=== PATIENT | male | born 1960 | race Caucasian/White ===

== ENCOUNTER 2019-02-06 08:06 | Emergency (ER) | payer SELFPAY ==
[2019-02-06] MEDS ORDERED: KETOROLAC 30 MG/ML INJ ONE (08:41)
[2019-02-06] MEDS ORDERED: NA CHLORIDE 0.9% 500 ML ONE (08:41)
[2019-02-06] MEDS ORDERED: ONDANSETRON 4 MG/2 ML VIAL ONE (08:41)
[2019-02-06 08:52] LABS: Absolute Lymphocytes (CBC) 0.8 K/uL (0.7-4.9); Basophils % 0.4 % (0-1.3); Hematocrit 36.5 % (39.6-49.0); Lymphocytes % 6.7 % (15.3-44.8); MPV 8.3 fL (7.6-11.3); RBC Red Blood Cell Count 4.47 M/uL (4.33-5.43)
[2019-02-06 09:03] LABS: ALT/SGPT 38 U/L (12-78); AST/SGOT 24 U/L (15-37); Albumin 3.4 g/dL (3.4-5.0); Alkaline Phosphatase 132 U/L (45-117); BUN Blood Urea Nitrogen 23 mg/dL (7-18); Bicarbonate 22 mmol/L (21-32); Bilirubin Direct < 0.1 mg/dL (0-0.2); Bilirubin Total 0.4 mg/dL (0.2-1.0); Glucose Level 164 mg/dL (74-106); Lipase 188 U/L (73-393); Protein, Total 7.6 g/dL (6.4-8.2); Sodium Level 146 mmol/L (136-145)
--- NOTE | 2019-02-06 09:22 | RAD REPORT ---
EXAM DESCRIPTION: CT - Stone Protocol - 02/06/2019 8:59 am CLINICAL HISTORY: Flank pain. right flank COMPARISON: No comparisons TECHNIQUE: Axial images were obtained without oral or IV contrast. Lack of contrast limits solid org an and vascular assessment. The [id number] spans the entirety of the system partially obscuring uppermost abdomen and lung bases. Coronal reformatted images were obtained and reviewed. All CT scans are performed using dose optimization technique as appropriate and may include automated exposure control or mA/KV adjustment according to patient size. FINDINGS: The lower lung nixon are clear. Imaged portions of the liver and spleen show no suspicious findings on non-contrast imaging. The panc reas and adrenal glands are normal. No pathologic lymphadenopathy in the abdomen or pelvis. 3 mm stone is present in the distal right ureter resulting in mild right hydronephrosis. Additional p unctate calculus is seen mid-pole right kidney. Several small calculi are present inferior calyx left kidney largest measuring 4 mm. No bowel obstruction, free air, free fluid or abscess. Normal appendix noted.Small to moderate fat co ntaining left inguinal hernia. Mild lumbar degenerative changes. IMPRESSION: 3 mm stone distal right ureter resulting in mild right hydronephrosis. Additional bilateral nephrolithiasis.
[2019-02-06 10:03] LABS: Blood Morphology Comment NOT SEEN (NOT SEEN); Platelet Estimate ADEQ; Urine White Blood Cell Casts OK
--- NOTE | 2019-02-06 10:23 | ER ---
Nurse's Notes [facility] Name: Raji Cherry Age: 58 yrs Sex: Male : 1960 Arrival Date: 02/06/2019 Time: 08:08 Bed 8 Private MD: Diagnosis: Right Kidney stone - 3 mm Presentation: 02/06 08:15 Presenting complaint: Patient states: right flank pain that started this morning around sv 0300 with n/v. Hx kidney stones. Transition of care: patient was not received from another setting of care. Onset of symptoms was February 06, 2019 at 03:00. Risk Assessment: Do you want to hurt yourself or someone else? Patient reports no desire to harm self or others. Initial Sepsis Screen: Does the patient meet any 2 criteria? No. Patient's initial sepsis screen is negative. Does the patient have a suspected source of infection? No. Patient's initial sepsis screen is negative. Care prior to arrival: None. 08:15 Method Of Arrival: Ambulatory sv 08:19 Acuity: LUCIA 2 sv Triage Assessment: 08:15 General: Appears in no apparent distress. uncomfortable, Behavior is cooperative, sv appropriate for age, restless. Pain: Complains of pain in anterior aspect of right lateral abdomen and posterior aspect of right lateral abdomen Pain currently is 8 out of 10 on a pain scale. Quality of pain is described as sharp, stabbing, Pain began 0300 Is continuous. Neuro: Level of Consciousness is awake, alert, obeys commands, Oriented to person, place, time, situation, Moves all extremities. Full function Gait is steady. Respiratory: Respiratory effort is even, unlabored, Respiratory pattern is regular, symmetrical. GI: Reports nausea, vomiting. Derm: Skin is clammy, Skin is normal. Historical: - Allergies: 08:30 No Known Allergies; sv - PMHx: 08:30 Kidney stones; sv - PSHx: 08:30 left wrist; sv - Immunization history:: Adult Immunizations up to date. - Social history:: Smoking status: Patient/guardian denies using tobacco. - Ebola Screening: : No symptoms or risks identified at this time. Screenin:31 Abuse screen: Denies threats or abuse. Denies injuries from another. Nutritional sv screening: No deficits noted. Tuberculosis screening: No symptoms or risk factors identified. Fall Risk None identified. Assessment: 08:48 Reassessment: Patient appears in no apparent distress at this time. No changes from sv previously documented assessment. Patient and/or family updated on plan of care and expected duration. Pain level reassessed. Patient is alert, oriented x 3, equal unlabored respirations, skin warm/dry/pink. Vital Signs: 08:17 BP 163 / 81; Pulse 89; Resp 22; Temp 98.2; Pulse Ox 98% ; Weight 95.25 kg; Height 5 ft. sv 7 in. (170.18 cm); Pain 8/10; 09:29 BP 135 / 75; Pulse 71; Resp 18; Pulse Ox 100% ; sv 09:30 Pain 0/10; sv 10:17 BP 130 / 73; Pulse 65; Resp 18; Pulse Ox 100% ; sv 08:17 Body Mass Index 32.89 (95.25 kg, 170.18 cm) sv ED Course: 08:08 Patient arrived in ED. am2 08:10 Jose Jara MD is Attending Physician. kdr 08:12 Winifred Augustin RN is Primary Nurse. sv 08:15 Arm band placed on Patient placed in an exam room, on a stretcher. sv 08:15 Patient has correct armband on for positive identification. Bed in low position. Call sv light in reach. Adult w/ patient. Pulse ox on. NIBP on. Door closed. Head of bed elevated. 08:19 Triage completed. sv 08:25 Missed attempt(s): 20 gauge in right antecubital area. Bleeding controlled, band aid sv applied, catheter tip intact. 08:39 Initial lab(s) drawn, by me, sent to lab. Inserted saline lock: 20 gauge in left jb1 antecubital area, using aseptic technique. Blood collected. 08:[address] via wheelchair. sv 09:04 CT Stone Protocol In Process Unspecified. EDMS 09:33 Awaiting radiology results. sv 10:30 No provider procedures requiring assistance completed. IV discontinued, intact, sv bleeding controlled, No redness/swelling at site. Pressure dressing applied. Administered Medications: 08:44 Drug: NS 0.9% 500 ml Route: IV; Rate: bolus; Site: left antecubital; sv 09:30 Follow up: Response: No adverse reaction; IV Status: Completed infusion; IV Intake: sv 500ml 08:44 Drug: Zofran 4 mg Route: IVP; Site: left antecubital; sv 09:30 Follow up: Response: No adverse reaction sv 08:46 Drug: TORadol - Ketorolac 15 mg Route: IVP; Site: left antecubital; sv 09:30 Follow up: Pain 0/10 Adult; Response: No adverse reaction; Marked relief of symptoms; sv Pain is decreased Intake: 09:30 IV: 500ml; Total: 500ml. sv Outcome: 10:19 Discharge ordered by . kdr 10:30 Discharged to home ambulatory, with family. sv 10:30 Condition: stable 10:30 Discharge instructions given to patient, Instructed on discharge instructions, follow up and referral plans. no drinking with medication, no driving heavy equipment, medication usage, increase fluid intake Demonstrated understanding of instructions, follow-up care, medications, Prescriptions given X 4. 10:33 Patient left the ED. sv Signatures: Dispatcher [employer] EDRick Manjarrez Stephanie, RN RN Jose Scott MD MD kdr Moreno, Amanda am2
--- NOTE | 2019-02-06 10:23 | EDPHYS ---
Physician Documentation [facility] Name: Raji Cherry Age: 58 yrs Sex: Male : 1960 Arrival Date: 02/06/2019 Time: 08:08 Bed 8 Private MD: ED Physician Jose Jara HPI: 02/06 08:56 This 58 yrs old Male presents to ER via Ambulatory with complaints of Flank kdr Pain, Nausea. 08:56 The patient complains of pain in the right mid back. Onset: The symptoms/episode kdr began/occurred suddenly, at 03:30, and became worse and became persistent. Modifying factors: The symptoms are alleviated by nothing. the symptoms are aggravated by nothing. Associated signs and symptoms: Pertinent positives: nausea, vomiting, Pertinent negatives: dizziness, dysuria, fever, urinary frequency, headache, hematuria, nausea. Severity of pain: At its worst the pain was moderate just prior to arrival, in the emergency department the pain is unchanged. The patient has experienced similar episodes in the past, multiple times, States that about once every five years. The patient has not recently seen a physician. Historical: - Allergies: 08:30 No Known Allergies; sv - PMHx: 08:30 Kidney stones; sv - PSHx: 08:30 left wrist; sv - Immunization history:: Adult Immunizations up to date. - Social history:: Smoking status: Patient/guardian denies using tobacco. - Ebola Screening: : No symptoms or risks identified at this time. ROS: 08:56 Constitutional: Negative for fever, chills, and weight loss, Eyes: Negative for injury, kdr pain, redness, and discharge, Neck: Negative for injury, pain, and swelling, Cardiovascular: Negative for chest pain, palpitations, and edema, Respiratory: Negative for shortness of breath, cough, wheezing, and pleuritic chest pain, Abdomen/GI: Negative for abdominal pain, nausea, vomiting, diarrhea, and constipation, : Negative for injury, bleeding, discharge, and swelling, MS/Extremity: Negative for injury and deformity, Skin: Negative for injury, rash, and discoloration, Neuro: Negative for headache, weakness, numbness, tingling, and seizure activity. Psych: Negative for depression, anxiety, suicide ideation, homicidal ideation, and hallucinations, Allergy/Immunology: Negative for hives, rash, and allergies, Endocrine: Negative for neck swelling, polydipsia, polyuria, polyphagia, and marked weight changes, Hematologic/Lymphatic: Negative for swollen nodes, abnormal bleeding, and unusual bruising. 08:56 Back: Positive for pain at rest, pain with movement, flank pain, on the right, radiated pain. Exam: 08:56 Constitutional: This is a well developed, well nourished patient who is awake, alert, kdr and in no acute distress. Head/Face: Normocephalic, atraumatic. Eyes: Pupils equal round and reactive to light, extra-ocular motions intact. Lids and lashes normal. Conjunctiva and sclera are non-icteric and not injected. Cornea within normal limits. Periorbital areas with no swelling, redness, or edema. Neck: Trachea midline, no thyromegaly or masses palpated, and no cervical lymphadenopathy. Supple, full range of motion without nuchal rigidity, or vertebral point tenderness. No Meningismus. Chest/axilla: Normal chest wall appearance and motion. Nontender with no deformity. No lesions are appreciated. Cardiovascular: Regular rate and rhythm with a normal S1 and S2. No gallops, murmurs, or rubs. Normal PMI, no JVD. No pulse deficits. Respiratory: Lungs have equal breath sounds bilaterally, clear to auscultation and percussion. No rales, rhonchi or wheezes noted. No increased work of breathing, no retractions or nasal flaring. Abdomen/GI: Soft, non-tender, with normal bowel sounds. No distension or tympany. No guarding or rebound. No evidence of tenderness throughout. Skin: Warm, dry with normal turgor. Normal color with no rashes, no lesions, and no evidence of cellulitis. MS/ Extremity: Pulses equal, no cyanosis. Neurovascular intact. Full, normal range of motion. Neuro: Awake and alert, GCS 15, oriented to person, place, time, and situation. Cranial nerves II-XII grossly intact. Motor strength 5/5 in all extremities. Sensory grossly intact. Cerebellar exam normal. Normal gait. Psych: Awake, alert, with orientation to person, place and time. Behavior, mood, and affect are within normal limits. 08:56 Back: pain, that is mild, ROM is painful, normal spinal alignment noted, CVA tenderness, that is mild, is noted on the right, muscle spasm, is not present. Vital Signs: 08:17 BP 163 / 81; Pulse 89; Resp 22; Temp 98.2; Pulse Ox 98% ; Weight 95.25 kg; Height 5 ft. sv 7 in. (170.18 cm); Pain 8/10; 09:29 BP 135 / 75; Pulse 71; Resp 18; Pulse Ox 100% ; sv 09:30 Pain 0/10; sv 10:17 BP 130 / 73; Pulse 65; Resp 18; Pulse Ox 100% ; sv 08:17 Body Mass Index 32.89 (95.25 kg, 170.18 cm) sv MDM: 10:19 Patient medically screened. kdr 12:34 Data reviewed: vital signs, lab test result(s), radiologic studies. Counseling: I had a kdr detailed discussion with the patient and/or guardian regarding: the historical points, exam findings, and any diagnostic results supporting the discharge/admit diagnosis. 02/06 08:19 Order name: Basic Metabolic Panel; Complete Time: 09:50 sv 02/06 08:19 Order name: CBC with Diff sv 02/06 08:19 Order name: Creatinine for Radiology; Complete Time: 09:50 sv 02/06 08:19 Order name: Hepatic Function; Complete Time: 09:50 sv 02/06 08:19 Order name: Lipase; Complete Time: 09:50 sv 02/06 08:35 Order name: CT Stone Protocol kdr 02/06 10:07 Order name: CBC Smear Scan EDMS 02/06 08:19 Order name: IV Saline Lock; Complete Time: 08:39 sv 02/06 08:19 Order name: Labs collected and sent; Complete Time: 08:39 sv Administered Medications: 08:44 Drug: NS 0.9% 500 ml Route: IV; Rate: bolus; Site: left antecubital; sv 09:30 Follow up: Response: No adverse reaction; IV Status: Completed infusion; IV Intake: sv 500ml 08:44 Drug: Zofran 4 mg Route: IVP; Site: left antecubital; sv 09:30 Follow up: Response: No adverse reaction sv 08:46 Drug: TORadol - Ketorolac 15 mg Route: IVP; Site: left antecubital; sv 09:30 Follow up: Pain 0/10 Adult; Response: No adverse reaction; Marked relief of symptoms; sv Pain is decreased Disposition: 02/06/19 10:19 Discharged to Home. Impression: Right Kidney stone - 3 mm. - Condition is Stable. - Discharge Instructions: Renal Colic, [id number], Kidney Stones, [id number]. - Prescriptions for tamsulosin 0.4 mg Oral capsule,extended release 24hr - take 1 capsule by ORAL route once daily 1/2 hour following the same meal each day; 10 capsule. Tylenol- Codeine #3 300-30 mg Oral Tablet - take 2 tablet by ORAL route every 6 hours As needed; 6 tablet. Bactrim DS 800- 160 mg Oral Tablet - take 1 tablet by ORAL route every 12 hours for 3 days; 6 tablet. promethazine 25 mg Oral Tablet - take 1 tablet by ORAL route every 6 hours As needed; 20 tablet. - Medication Reconciliation Form, Thank You Letter, Antibiotic Education, Prescription Opioid Use form. - Follow up: Private Physician; When: 2 - 3 days; Reason: If symptoms return, Further diagnostic work-up, Recheck today's complaints, Continuance of care, Re-evaluation by your physician. - Problem is an acute exacerbation. - Symptoms have improved. Signatures: Dispatcher [employer] [facility] Winifred Augustin RN RN sv Rittger, Kevin, MD MD kdr Corrections: (The following items were deleted from the chart) 08:46 08:37 Cardiac monitoring ordered. kdr sv 08:46 08:37 EKG - Nurse/Tech ordered. kdr sv 08:47 08:37 Oxygen Per Protocol ordered. kdr sv 08:47 08:37 O2 Sat Monitoring ordered. kdr sv 08:55 08:38 Chest Single View+RAD.RAD.BRZ ordered. [facility] EDAZ 10:33 10:19 02/06/2019 10:19 Discharged to Home. Impression: Right Kidney stone - 3 mm. sv Condition is Stable. Forms are Medication Reconciliation Form, Thank You Letter, Antibiotic Education, Prescription Opioid Use. Follow up: Private Physician; When: 2 - 3 days; Reason: If symptoms return, Further diagnostic work-up, Recheck today's complaints, Continuance of care, Re-evaluation by your physician. Problem is an acute exacerbation. Symptoms have improved. kdr
[2019-02-06 10:45] VITALS: TEMP 98.2
[2019-02-06 10:46] VITALS: O2SAT 100
[2019-02-06 10:49] VITALS: BP 130/73
== END 2019-02-06 10:33 | disposition home or self-care (01) ==
LOC: ER 08:06
DX: N20.0 Calculus of kidney (principal)
CPT/HCPCS: 36415; 74176; 76377; 80048; 80076; 83690; 85025; 96361; 96374; 96375; 99284; J2405

== ENCOUNTER 2019-02-23 08:42 | Emergency (ER) | payer SELFPAY ==
[2019-02-23] MEDS ORDERED: COLCHICINE 0.6 MG TAB ONE (09:28)
[2019-02-23] MEDS ORDERED: LIDOCAINE 1% MPF 5 ML VIAL ONE (09:38)
[2019-02-23] MEDS ORDERED: INDOMETHACIN 25 MG CAP PO ONE (09:45)
--- NOTE | 2019-02-23 10:31 | EDPHYS ---
Physician Documentation [facility] [place], [place] Name: Raji Cherry Age: 58 yrs Sex: Male : 1960 Arrival Date: 02/23/2019 Time: 08:44 Bed 18 Private MD: ED Physician Mauricio Melendrez HPI: 02/23 08:59 This 58 yrs old Male presents to ER via Ambulatory with complaints of Wrist jr8 Pain - Gout. 08:59 The patient or guardian reports pain. The complaints affect the right wrist diffusely. jr8 Onset: The symptoms/episode began/occurred 3 day(s) ago. Modifying factors: The symptoms are alleviated by holding still, the symptoms are aggravated by movement. Pt reports history of gout, denies recent injury or constitutional symptoms. Pain in right wrist for the last three days which is similar to previous flairs. Historical: - Allergies: 08:54 No Known Allergies; hb - Home Meds: 08:54 None [Active]; hb - PMHx: 08:54 Kidney stones; Gout; hb - PSHx: 08:54 left wrist; hb - Immunization history:: Adult Immunizations up to date. - Social history:: Smoking status: Patient/guardian denies using tobacco. - Ebola Screening: : No symptoms or risks identified at this time. ROS: 08:59 Constitutional: Negative for fever, chills, and weight loss, Eyes: Negative for injury, jr8 pain, redness, and discharge, ENT: Negative for injury, pain, and discharge, Neck: Negative for injury, pain, and swelling, Cardiovascular: Negative for chest pain, palpitations, and edema, Respiratory: Negative for shortness of breath, cough, wheezing, and pleuritic chest pain, Abdomen/GI: Negative for abdominal pain, nausea, vomiting, diarrhea, and constipation, Back: Negative for injury and pain, Skin: Negative for injury, rash, and discoloration, Neuro: Negative for headache, weakness, numbness, tingling, and seizure. 08:59 MS/extremity: Positive for pain, warmth, of the right wrist. Exam: 08:59 Hand exam: Exam is positive for pain, ROM: limited active range of motion due to pain, jr8 limited passive range of motion due to pain, in the right wrist. 08:59 Constitutional: This is a well developed, well nourished patient who is awake, alert, and in no acute distress. Head/Face: Normocephalic, atraumatic. Eyes: Pupils equal round and reactive to light, extra-ocular motions intact. Lids and lashes normal. Conjunctiva and sclera are non-icteric and not injected. Cornea within normal limits. Periorbital areas with no swelling, redness, or edema. ENT: Nares patent. No nasal discharge, no septal abnormalities noted. Tympanic membranes are normal and external auditory canals are clear. Oropharynx with no redness, swelling, or masses, exudates, or evidence of obstruction, uvula midline. Mucous membranes moist. Neck: Trachea midline, no thyromegaly or masses palpated, and no cervical lymphadenopathy. Supple, full range of motion without nuchal rigidity, or vertebral point tenderness. No Meningismus. Chest/axilla: Normal chest wall appearance and motion. Nontender with no deformity. No lesions are appreciated. Cardiovascular: Regular rate and rhythm with a normal S1 and S2. No gallops, murmurs, or rubs. Normal PMI, no JVD. No pulse deficits. Respiratory: Lungs have equal breath sounds bilaterally, clear to auscultation and percussion. No rales, rhonchi or wheezes noted. No increased work of breathing, no retractions or nasal flaring. Abdomen/GI: Soft, non-tender, with normal bowel sounds. No distension or tympany. No guarding or rebound. No evidence of tenderness throughout. Skin: Warm, dry with normal turgor. Normal color with no rashes, no lesions, and no evidence of cellulitis. 08:59 Musculoskeletal/extremity: Swelling to right wrist with tenderness to palpation, pain with active and passive ROM, warm. Without overlying cellulitis. CMS intact distal to inflamed joint. Vital Signs: 08:52 BP 158 / 76; Pulse 71; Resp 16; Temp 97; Pulse Ox 99% ; Weight 95.25 kg; Height 5 ft. 8 hb in. (172.72 cm); Pain 8/10; 10:41 BP 126 / 75; Pulse 64; Resp 18; Pulse Ox 99% on R/A; Pain 7/10; em 08:52 Body Mass Index 31.93 (95.25 kg, 172.72 cm) hb MDM: 08:57 Patient medically screened. jr8 10:29 Data reviewed: vital signs, nurses notes, and as a result, I will discharge patient. jr8 Data interpreted: Pulse oximetry: on room air is 99 %. Interpretation: normal. Counseling: I had a detailed discussion with the patient and/or guardian regarding: the historical points, exam findings, and any diagnostic results supporting the discharge/admit diagnosis. Response to treatment: the patient's symptoms have mildly improved after treatment. ED course: Pt symptoms mildly improved, stated in the past anti inflammatories have helped with gouty pain. . Administered Medications: 09:30 Drug: Colcrys 1.2 mg Route: PO; em 10:20 Follow up: Response: No adverse reaction; Pain is decreased em 10:36 Drug: Indocin 50 mg Route: PO; em 10:46 Follow up: Response: Medication administered at discharge. em 10:36 Drug: Colcrys 0.6 mg Route: PO; em 10:46 Follow up: Response: Medication administered at discharge. em Disposition: 12:16 Co-signature as Attending Physician, Mauricio Melendrez MD. rn Disposition: 02/23/19 10:30 Discharged to Home. Impression: Gout. - Condition is Stable. - Discharge Instructions: Gout. - Prescriptions for indomethacin 50 mg Oral capsule - take 1 capsule by ORAL route 3 times per day As needed with food; 15 capsule. - Medication Reconciliation Form, Thank You Letter form. - Follow up: Private Physician; When: As needed; Reason: Recheck today's complaints, Re-evaluation by your physician. - Problem is an acute exacerbation. - Symptoms are unchanged. Signatures: Bryce Matos, TRACK MAINTAINER TRACK MAINTAINER em Mauricio Melendrez MD MD rn Roszak, Josh, PA PA jr8 Joselyn Graves RN RN Corrections: (The following items were deleted from the chart) 10:42 10:30 02/23/2019 10:30 Discharged to Home. Impression: Gout. Condition is Stable. em Discharge Instructions: Gout. Prescriptions for indomethacin 50 mg Oral capsule - take 1 capsule by ORAL route 3 times per day As needed with food; 15 capsule. and Forms are Medication Reconciliation Form, Thank You Letter, Antibiotic Education, Prescription Opioid Use. Follow up: Private Physician; When: As needed; Reason: Recheck today's complaints, Re-evaluation by your physician. Problem is an acute exacerbation. Symptoms are unchanged. jr8 10:47 10:42 02/23/2019 10:30 Discharged to Home. Impression: Gout. Condition is Stable. em Discharge Instructions: Gout. Prescriptions for indomethacin 50 mg Oral capsule - take 1 capsule by ORAL route 3 times per day As needed with food; 15 capsule. and Forms are Medication Reconciliation Form, Thank You Letter. Follow up: Private Physician; When: As needed; Reason: Recheck today's complaints, Re-evaluation by your physician. Problem is an acute exacerbation. Symptoms are unchanged. em
--- NOTE | 2019-02-23 10:31 | ER ---
Nurse's Notes [facility] Name: Raji Cherry Age: 58 yrs Sex: Male : 1960 Arrival Date: 02/23/2019 Time: 08:44 Bed 18 Private MD: Diagnosis: Gout Presentation: 02/23 08:53 Presenting complaint: Right wrist pain x 2-3 days. Denies injury. Hx of gout. hb Transition of care: patient was not received from another setting of care. Onset of symptoms was February 21, 2019. Risk Assessment: Do you want to hurt yourself or someone else? Patient reports no desire to harm self or others. Initial Sepsis Screen: Does the patient meet any 2 criteria? No. Patient's initial sepsis screen is negative. Does the patient have a suspected source of infection? No. Patient's initial sepsis screen is negative. Care prior to arrival: None. 08:53 Method Of Arrival: Ambulatory hb 08:53 Acuity: LUCIA 4 hb Historical: - Allergies: 08:54 No Known Allergies; hb - Home Meds: 08:54 None [Active]; hb - PMHx: 08:54 Kidney stones; Gout; hb - PSHx: 08:54 left wrist; hb - Immunization history:: Adult Immunizations up to date. - Social history:: Smoking status: Patient/guardian denies using tobacco. - Ebola Screening: : No symptoms or risks identified at this time. Screenin:54 Abuse screen: Denies threats or abuse. Denies injuries from another. Nutritional hb screening: No deficits noted. Tuberculosis screening: No symptoms or risk factors identified. Fall Risk None identified. Assessment: 09:25 General: Appears in no apparent distress. comfortable, Behavior is calm, cooperative, em Denies fever. Pain: Complains of pain in right wrist Pain currently is 9 out of 10 on a pain scale. Pain began 2-3 days ago. Neuro: Level of Consciousness is awake, alert, obeys commands, Oriented to person, place, time, situation, Appropriate for age. Cardiovascular: Capillary refill < 3 seconds Patient's skin is warm and dry. Respiratory: Airway is patent Respiratory effort is even, unlabored, Respiratory pattern is regular, symmetrical. Derm: Skin is intact, is healthy with good turgor, Skin is pink, warm \T\ dry. Musculoskeletal: Capillary refill < 3 seconds, Range of motion: limited in right wrist Swelling present in right wrist. 09:35 Reassessment: i agree with previous assessment. hb Vital Signs: 08:52 BP 158 / 76; Pulse 71; Resp 16; Temp 97; Pulse Ox 99% ; Weight 95.25 kg; Height 5 ft. 8 hb in. (172.72 cm); Pain 8/10; 10:41 BP 126 / 75; Pulse 64; Resp 18; Pulse Ox 99% on R/A; Pain 7/10; em 08:52 Body Mass Index 31.93 (95.25 kg, 172.72 cm) hb ED Course: 08:44 Patient arrived in ED. as 08:45 [facility]. jr8 08:45 Mauricio Melendrez MD is Attending Physician. jr8 08:53 Triage completed. hb 08:54 Arm band placed on. hb 08:59 Bryce Matos LVN is Primary Nurse. em 09:25 Patient has correct armband on for positive identification. Bed in low position. Call em light in reach. Adult w/ patient. Pulse ox on. NIBP on. 10:40 No provider procedures requiring assistance completed. Patient did not have IV access em during this emergency room visit. Administered Medications: 09:30 Drug: Colcrys 1.2 mg Route: PO; em 10:20 Follow up: Response: No adverse reaction; Pain is decreased em 10:36 Drug: Indocin 50 mg Route: PO; em 10:46 Follow up: Response: Medication administered at discharge. em 10:36 Drug: Colcrys 0.6 mg Route: PO; em 10:46 Follow up: Response: Medication administered at discharge. em Outcome: 10:30 Discharge ordered by . jr8 10:41 Discharged to home ambulatory, with family. em 10:41 Condition: good 10:41 Discharge instructions given to patient, family, Instructed on discharge instructions, follow up and referral plans. medication usage, Demonstrated understanding of instructions, follow-up care, medications, Prescriptions given X 1. 10:47 Patient left the ED. em Signatures: Bryce Matos LVN LVN em Wendy Gore as Ryan Toro PA PA jr8 Joselyn Graves, RN RN
[2019-02-23 10:51] VITALS: TEMP 97; O2SAT 99
[2019-02-23 10:53] VITALS: BP 126/75
== END 2019-02-23 10:47 | disposition home or self-care (01) ==
LOC: ER 08:42
DX: M10.9 Gout, unspecified (principal)
CPT/HCPCS: 99283

== ENCOUNTER 2019-03-27 09:13 | Emergency (ER) | payer OTHER, SELFPAY ==
[2019-03-27] MEDS ORDERED: COLCHICINE 0.6 MG TAB ONE (10:33)
[2019-03-27] MEDS ORDERED: INDOMETHACIN 25 MG CAP PO ONE (10:45)
--- NOTE | 2019-03-27 11:09 | ER ---
Nurse's Notes [facility] Name: Raji Cherry Age: 58 yrs Sex: Male : 1960 Arrival Date: 03/27/2019 Time: 09:15 Bed 10 Private MD: Diagnosis: Gout Presentation: 03/27 09:34 Presenting complaint: Patient states: left wrist swelling and pain that began 3 days aa5 ago. Pt states "I have gout". Transition of care: patient was not received from another setting of care. Onset of symptoms was March 2019. Risk Assessment: Do you want to hurt yourself or someone else? Patient reports no desire to harm self or others. Initial Sepsis Screen: Does the patient meet any 2 criteria? No. Patient's initial sepsis screen is negative. Does the patient have a suspected source of infection? No. Patient's initial sepsis screen is negative. Care prior to arrival: None. 09:34 Acuity: LUCIA 5 aa5 09:34 Method Of Arrival: Ambulatory aa5 Historical: - Allergies: 09:35 No Known Allergies; aa5 - PMHx: 09:35 Gout; Kidney stones; aa5 - PSHx: 09:35 left wrist; aa5 - Immunization history:: Flu vaccine is not up to date. - Social history:: Smoking status: Patient/guardian denies using tobacco. - Ebola Screening: : No symptoms or risks identified at this time. Screenin:40 Abuse screen: Denies threats or abuse. Nutritional screening: No deficits noted. aa5 Tuberculosis screening: No symptoms or risk factors identified. Fall Risk None identified. Assessment: 09:55 General: Appears uncomfortable, Behavior is calm, cooperative. Pain: Complains of pain aa5 in left wrist Pain does not radiate. Pain currently is 8 out of 10 on a pain scale. Quality of pain is described as sharp, tender, Is continuous. Neuro: Level of Consciousness is awake, alert, obeys commands, Oriented to person, place, time, situation. Cardiovascular: Patient's skin is warm and dry. Respiratory: Airway is patent Respiratory effort is even, unlabored, Respiratory pattern is regular, symmetrical. GI: No signs and/or symptoms were reported involving the gastrointestinal system. : No signs and/or symptoms were reported regarding the genitourinary system. EENT: No signs and/or symptoms were reported regarding the EENT system. Derm: Skin is pink, warm \\T\\ dry. Musculoskeletal: Swelling present in left wrist. 10:37 Reassessment: Awaiting Indomethacin from pharmacy . aa5 11:05 Reassessment: Patient is alert, oriented x 3, equal unlabored respirations, skin aa5 warm/dry/pink. Patient states feeling better. Patient states symptoms have improved. PA was notified pain has decreased. . 11:17 Reassessment: Patient is alert, oriented x 3, equal unlabored respirations, skin aa5 warm/dry/pink. Vital Signs: 09:35 BP 155 / 85; Pulse 63; Resp 18 S; Temp 98.4(O); Pulse Ox 97% on R/A; Weight 95.25 kg aa5 (R); Height 5 ft. 7 in. (170.18 cm) (R); Pain 8/10; 09:35 Body Mass Index 32.89 (95.25 kg, 170.18 cm) aa5 ED Course: 09:15 Patient arrived in ED. as 09:34 Triage completed. aa5 09:34 Arm band placed on. aa5 09:34 Patient has correct armband on for positive identification. aa5 09:55 Anna Monzon RN is Primary Nurse. aa5 09:56 Ryan Toro PA is PHCP. jr8 09:56 Jose Jara MD is Attending Physician. jr8 11:17 No provider procedures requiring assistance completed. Patient did not have IV access aa5 during this emergency room visit. Administered Medications: 10:37 Drug: Colcrys 1.2 mg Route: PO; aa5 11:05 Follow up: Response: No adverse reaction aa5 10:57 Drug: Indomethacin 50 mg Route: PO; aa5 11:05 Follow up: Response: No adverse reaction aa5 Outcome: 11:07 Discharge ordered by . jr8 11:17 Discharged to home ambulatory. aa5 11:17 Condition: improved 11:17 Discharge instructions given to patient, Instructed on discharge instructions, follow up and referral plans. medication usage, Demonstrated understanding of instructions, follow-up care, medications, Prescriptions given X 2. 11:20 Patient left the ED. aa5 Signatures: Wendy Gore as Anna Monzon RN RN aa5 Ryan Toro PA PA jr8
--- NOTE | 2019-03-27 11:10 | EDPHYS ---
Physician Documentation [facility] Name: Raji Cherry Age: 58 yrs Sex: Male : 1960 Arrival Date: 03/27/2019 Time: 09:15 Bed 10 Private MD: ED Physician Jose Jara HPI: 03/27 10:11 This 58 yrs old Male presents to ER via Ambulatory with complaints of Wrist jr8 Pain - Gout. 10:11 The patient or guardian reports pain, swelling, tenderness. The complaints affect the jr8 left wrist diffusely. Context: resulted from gout flare. Onset: The symptoms/episode began/occurred gradually, 2 day(s) ago. Modifying factors: The symptoms are alleviated by nothing, the symptoms are aggravated by movement. Associated signs and symptoms: The patient has no apparent associated signs or symptoms. The patient has experienced similar episodes in the past, several times. The patient has not recently seen a physician. Patient with history of gout. Has had several flare up's in the past. Stated that they happen often in the knees and wrists. Started to have pain in wrist and 2nd digit that is not getting better. Not on attorney gout medication at this time . Historical: - Allergies: 09:35 No Known Allergies; aa5 - PMHx: 09:35 Gout; Kidney stones; aa5 - PSHx: 09:35 left wrist; aa5 - Immunization history:: Flu vaccine is not up to date. - Social history:: Smoking status: Patient/guardian denies using tobacco. - Ebola Screening: : No symptoms or risks identified at this time. ROS: 10:11 Constitutional: Negative for fever, chills, and weight loss. jr8 10:11 MS/extremity: Positive for pain, swelling, tenderness, warmth, of the left hand and wrist. 10:11 All other systems are negative. Exam: 10:11 Constitutional: This is a well developed, well nourished patient who is awake, alert, jr8 and in no acute distress. Cardiovascular: Regular rate and rhythm with a normal S1 and S2. No gallops, murmurs, or rubs. Normal PMI, no JVD. No pulse deficits. Respiratory: Lungs have equal breath sounds bilaterally, clear to auscultation and percussion. No rales, rhonchi or wheezes noted. No increased work of breathing, no retractions or nasal flaring. Skin: Warm, dry with normal turgor. Normal color with no rashes, no lesions, and no evidence of cellulitis. Neuro: Awake and alert, GCS 15, oriented to person, place, time, and situation. Cranial nerves II-XII grossly intact. Motor strength 5/5 in all extremities. Sensory grossly intact. Cerebellar exam normal. Normal gait. 10:11 Musculoskeletal/extremity: Extremities: grossly normal except: noted in the left hand and wrist: Patient has swelling over the PIP and MCP of the 2nd digit left hand along with swelling to dorsum of left wrist. Mild warmth to touch without erythema , ROM: intact in all extremities, full active range of motion, full passive range of motion, limited active range of motion due to pain, limited passive range of motion due to pain, Circulation is intact in all extremities. Pulses: noted to be 2+ in the right radial artery and left radial artery, Sensation intact. Vital Signs: 09:35 BP 155 / 85; Pulse 63; Resp 18 S; Temp 98.4(O); Pulse Ox 97% on R/A; Weight 95.25 kg aa5 (R); Height 5 ft. 7 in. (170.18 cm) (R); Pain 8/10; 09:35 Body Mass Index 32.89 (95.25 kg, 170.18 cm) aa5 MDM: 09:56 Patient medically screened. [facility] 11:07 Data reviewed: vital signs, nurses notes, and as a result, I will discharge patient. [facility] Data interpreted: Pulse oximetry: on room air is 97 %. Interpretation: normal. Counseling: I had a detailed discussion with the patient and/or guardian regarding: the historical points, exam findings, and any diagnostic results supporting the discharge/admit diagnosis, the need for outpatient follow up, a family practitioner, to return to the emergency department if symptoms worsen or persist or if there are any questions or concerns that arise at home. Response to treatment: the patient's symptoms have markedly improved after treatment. Administered Medications: 10:37 Drug: Colcrys 1.2 mg Route: PO; aa5 11:05 Follow up: Response: No adverse reaction aa5 10:57 Drug: Indomethacin 50 mg Route: PO; aa5 11:05 Follow up: Response: No adverse reaction aa5 Disposition: 11:50 Co-signature as Attending Physician, Jose Jara MD I agree with the assessment and kdr plan of care. Disposition: 03/27/19 11:07 Discharged to Home. Impression: Gout. - Condition is Stable. - Discharge Instructions: Gout. - Prescriptions for indomethacin 50 mg Oral capsule - take 1 capsule by ORAL route 3 times per day As needed with food; 15 capsule. Medrol (Pantera) 4 mg Oral Tablets, Dose Pack - take 1 tablet by ORAL route as directed - follow package instructions; 1 packet. - Medication Reconciliation Form, Thank You Letter, Antibiotic Education, Prescription Opioid Use form. - Follow up: Private Physician; When: 5 - 6 days; Reason: Recheck today's complaints, Continuance of care, Re-evaluation by your physician. - Problem is new. - Symptoms have improved. Signatures: Jose Jara MD MD [facility] Anna Monzon RN RN aa5 Ryan Toro PA PA jr8 Corrections: (The following items were deleted from the chart) 11:20 11:07 03/27/2019 11:07 Discharged to Home. Impression: Gout. Condition is Stable. Forms aa5 are Medication Reconciliation Form, Thank You Letter, Antibiotic Education, Prescription Opioid Use. Follow up: Private Physician; When: 5 - 6 days; Reason: Recheck today's complaints, Continuance of care, Re-evaluation by your physician. Problem is new. Symptoms have improved. jr8
[2019-03-27 14:37] VITALS: BP 155/85; TEMP 98.4; O2SAT 97
== END 2019-03-27 11:20 | disposition home or self-care (01) ==
LOC: ER 09:13
DX: M10.9 Gout, unspecified (principal)
CPT/HCPCS: 99283

== ENCOUNTER 2020-12-12 09:13 | Emergency (ER) | payer OTHER, SELFPAY ==
--- NOTE | 2020-12-12 10:59 | ER ---
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 Coronavirus screen: At this time, the client does not indicate any symptoms associated with coronavirus-19. Ebola Screen: Patient negative for fever greater than or equal to 101.5 degrees Fahrenheit, and additional compatible Ebola Virus Disease symptoms Patient denies exposure to infectious person. Patient denies travel to an Ebola-affected area in the 21 days before illness onset. No symptoms or risks identified at this time. Initial Sepsis Screen: Does the patient meet any 2 criteria? No. Patient's initial sepsis screen is negative. Does the patient have a suspected source of infection? No. Patient's initial sepsis screen is negative. Risk Assessment: Do you want to hurt yourself or someone else? Patient reports no desire to harm self or others. Onset of symptoms was December 11, 2020. 09:49 Method Of Arrival: Wheelchair iw 09:49 Acuity: LUCIA 4 iw Triage Assessment: 09:50 Pain: Complains of pain in dorsum of left foot. iw 09:50 General: Appears in no apparent distress. iw Historical: - Allergies: 09:52 No Known Allergies; iw - PMHx: 09:52 Gout; Kidney stones; Hypertensive disorder; iw - PSHx: 09:52 left wrist; iw - Immunization history:: Adult Immunizations Client reports having NOT received the Covid vaccine. - Social history:: Smoking status: Patient denies any tobacco usage or history of. Screenin:56 Abuse screen: Denies threats or abuse. Denies injuries from another. Nutritional iw screening: No deficits noted. Tuberculosis screening: No symptoms or risk factors identified. 09:56 Fall Risk None identified. iw Assessment: 09:56 General: Appears in no apparent distress. Behavior is calm, cooperative. iw Vital Signs: 09:49 BP 125 / 90; Pulse 71; Resp 16; Temp 98.6; Pulse Ox 99% on R/A; Weight 97.52 kg; Height iw 5 ft. 8 in. (172.72 cm); Pain 9/10; 09:49 Body Mass Index 32.69 (97.52 kg, 172.72 cm) iw ED Course: 09:14 Patient arrived in ED. am2 09:52 Triage completed. iw 09:53 Arm band placed on Patient placed. iw 09:55 Xochitl Che FNP-C is PHCP. kb 09:55 Janessa Kellogg MD is Attending Physician. kb 09:56 Stephanie Stearns, FRED is Primary Nurse. iw 09:56 Patient has correct armband on for positive identification. iw 10:13 Foot Left 3 View XRAY In Process Unspecified. EDMS 11:45 No provider procedures requiring assistance completed. Patient did not have IV access iw during this emergency room visit. Administered Medications: 11:40 Drug: Bactrim (trimethoprim-sulfamethoxazole) (160 mg-800 mg (DS) 1 tablet Route: PO; iw 12:00 Follow up: Response: No adverse reaction iw Outcome: 10:59 Discharge ordered by MD. kb 11:45 Discharged to home via wheelchair. iw 11:45 Condition: good 11:45 Discharge instructions given to patient, Instructed on discharge instructions, follow up and referral plans. medication usage, Demonstrated understanding of instructions, follow-up care, medications, Prescriptions given X 1. 11:46 Patient left the ED. iw Signatures: Dispatcher [employer] EDMS Xochitl Che FNP-C FNP-Stephanie Soto, FRED RN iw Lucy Sanchez am2 Corrections: (The following items were deleted from the chart) 16:35 09:00 Pain: Complains of pain in dorsum of left foot iw iw
--- NOTE | 2020-12-12 11:00 | EDPHYS ---
Physician Documentation [facility] Name: Raji Cherry Age: 60 yrs Sex: Male : 1960 Arrival Date: 12/12/2020 Time: 09:14 Bed 15 Private MD: ED Physician Janessa Kellogg HPI: 12/12 10:57 This 60 yrs old Male presents to ER via Wheelchair with complaints of Foot kb Pain - left. 10:56 Patient reports he has misstepped and fallen a couple times over the last couple of kb weeks. Reports no symptoms after falls but yesterday started having pain to top, lateral left foot. 10:57 The patient presents with pain, that is acute, swelling. The complaints affect the left kb foot. Context: The problem was sustained at home, resulted from an unknown cause, the patient can fully bear weight, the patient is able to ambulate. Onset: The symptoms/episode began/occurred yesterday. Modifying factors: The symptoms are alleviated by nothing, the symptoms are aggravated by weight bearing. Associated signs and symptoms: Pertinent positives: swelling, Pertinent negatives: calf tenderness, fever, nausea, numbness, rash, tingling, vomiting, warmth, weakness. Severity of symptoms: At their worst the symptoms were mild, moderate, in the emergency department the symptoms are unchanged. The patient has not experienced similar symptoms in the past. The patient has not recently seen a physician. Historical: - Allergies: 09:52 No Known Allergies; iw - PMHx: 09:52 Gout; Kidney stones; Hypertensive disorder; iw - PSHx: 09:52 left wrist; iw - Immunization history:: Adult Immunizations Client reports having NOT received the Covid vaccine. - Social history:: Smoking status: Patient denies any tobacco usage or history of. ROS: 10:51 Constitutional: Negative for fever, chills, and weight loss. kb 10:51 MS/extremity: Positive for pain, swelling, of the dorsum of left foot. 10:51 Skin: Positive for erythema, swelling, of the dorsum of left foot. 10:51 All other systems are negative. Exam: 10:55 Constitutional: This is a well developed, well nourished patient who is awake, alert, kb and in no acute distress. ENT: Moist Mucous membranes Respiratory: Respirations even and unlabored. No increased work of breathing, no retractions or nasal flaring. MS/ Extremity: Pulses equal, no cyanosis. Neurovascular intact. Full, normal range of motion. Neuro: Awake and alert, GCS 15, oriented to person, place, time, and situation. Moves all extremities. Normal gait. Psych: Awake, alert, with orientation to person, place and time. Behavior, mood, and affect are within normal limits. 10:55 Skin: cellulitis, that is mild, on the dorsum of left foot. Vital Signs: 09:49 BP 125 / 90; Pulse 71; Resp 16; Temp 98.6; Pulse Ox 99% on R/A; Weight 97.52 kg; Height iw 5 ft. 8 in. (172.72 cm); Pain 9/10; 09:49 Body Mass Index 32.69 (97.52 kg, 172.72 cm) iw MDM: 09:55 Patient medically screened. kb 10:51 Data reviewed: vital signs, nurses notes. Data interpreted: Pulse oximetry: on room air kb is 99 %. Interpretation: normal. Counseling: I had a detailed discussion with the patient and/or guardian regarding: the historical points, exam findings, and any diagnostic results supporting the discharge/admit diagnosis, radiology results, the need for outpatient follow up, a family practitioner, to return to the emergency department if symptoms worsen or persist or if there are any questions or concerns that arise at home. 12/12 09:56 Order name: Foot Left 3 View XRAY; Complete Time: 11:15 kb Administered Medications: 11:40 Drug: Bactrim (trimethoprim-sulfamethoxazole) (160 mg-800 mg (DS) 1 tablet Route: PO; iw 12:00 Follow up: Response: No adverse reaction iw Disposition: 17:12 Co-signature as Attending Physician, Janessa Kellogg MD. ma2 Disposition Summary: 12/12/20 10:59 Discharge Ordered Location: Home kb Condition: Stable kb Diagnosis - Cellulitis of left lower limb kb Followup: kb - With: Emergency Department - When: As needed - Reason: Worsening of condition Followup: kb - With: Private Physician - When: 2 - 3 days - Reason: Recheck today's complaints, Continuance of care, Re-evaluation by your physician Discharge Instructions: - Discharge Summary Sheet kb - Cellulitis, Adult, [id number] kb Forms: - Medication Reconciliation Form kb - Thank You Letter kb - Antibiotic Education kb - Prescription Opioid Use kb - Work release form iw Prescriptions: - Bactrim DS 800-160 mg Oral Tablet - take 1 tablet by ORAL route every 12 hours for 10 days; 20 tablet; Refills: 0, kb Product Selection Permitted Signatures: Dispatcher [employer] Xochitl Quintero, Stephanie Del Toro RN RN iw Janessa Kellogg MD MD ma2
--- NOTE | 2020-12-12 11:02 | RAD REPORT ---
EXAM DESCRIPTION: RAD - Foot Left 3 View - 12/12/2020 10:13 am CLINICAL HISTORY: PAIN COMPARISON: No comparisons FINDINGS: No left foot fractures identified. No malalignment. Mild to moderate degenerative changes are present at the first MTP joint. Mild interphalangeal joint space narrowing. There are some midfoo t degenerative changes as well. IMPRESSION: No acute osseus abnormality involving the left foot.
[2020-12-12 11:53] VITALS: BP 125/90; TEMP 98.6; O2SAT 99
[2020-12-12] MEDS ORDERED: SMZ./TMP. 800/160 MG TABLET ONE (11:55)
== END 2020-12-12 11:46 | disposition home or self-care (01) ==
LOC: ER 09:13
DX: L03.116 Cellulitis of left lower limb (principal); I10 Essential (primary) hypertension
CPT/HCPCS: 99283